=== PATIENT | female | born 1980 | race Caucasian/White ===

== ENCOUNTER 2017-09-26 19:07 | Emergency (ER) | payer OTHER ==
--- NOTE | 2017-09-26 21:15 | ER Document Report ---
ED Medical Screen (RME) - General Chief Complaint: Back Pain Stated Complaint: HEADACHE Time Seen by Provider: 09/26/17 20:35 TRAVEL OUTSIDE OF THE [place] IN LAST 30 DAYS: No - HPI Notes: 09/26/17 21:14 37-year-old female presents with gradual onset today of increasingly severe bifrontal headache, neck pain, photophobia, paresthesias and numbness in her hands and feet weakness in her lower extremities. No recent tick bites, no recent camping, no travel outside the country. No trauma, does not believe she has had a fever. - Related Data Allergies/Adverse Reactions: No Known Allergies Allergy (Unverified 09/26/17 19:11) Past Medical History - Social History Chew tobacco use (# tins/day): No Frequency of alcohol use: None Drug Abuse: None Renal/ Medical History: Denies: Hx Peritoneal Dialysis Psychiatric Medical History: Reports: Hx Attention Deficit Hyperactivity Disorder, Hx Depression Physical Exam - Vital signs Vitals: Temp Pulse Resp BP Pulse Ox 98.6 F 74 16 130/88 H 100 09/26/17 19:39 09/26/17 19:39 09/26/17 19:39 09/26/17 19:39 09/26/17 19:39 Course - Re-evaluation Re-evalutation: 09/26/17 21:14 RAPID MEDICAL EVALUATION DISCLOSURE I have seen this patient as part of a Rapid Medical Evaluation and, if applicable, placed any initially appropriate orders. The patient will be seen and fully evaluated, including a full history and physical exam, by a provider ( in Main ED or Fast Track) when a room becomes available. - Vital Signs Vital signs: Temp Pulse Resp BP Pulse Ox 98.6 F 74 16 130/88 H 100 09/26/17 19:39 09/26/17 19:39 09/26/17 19:39 09/26/17 19:39 09/26/17 19:39
[2017-09-26] MEDS ORDERED: NORMAL SALINE 1000 ML 1,000 ML IV ONE (21:45)
[2017-09-26] MEDS ORDERED: DIPHENHYDRAMINE HCL 50 MG/ML VIAL IV ONE (21:46)
[2017-09-26] MEDS ORDERED: METOCLOPRAMIDE HCL INJ/PF 10 MG/2 ML SDV IV ONE (21:46)
[2017-09-26 22:31] LABS: ABSOLUTE BASOPHILS # (AUTO) 0.1 10^3/uL (0.0-0.2); ABSOLUTE EOSINOPHILS # (AUTO) 0.1 10^3/uL (0.0-0.6); ABSOLUTE LYMPHOCYTES (AUTO) 2.1 10^3/uL (0.5-4.7); ABSOLUTE MONOCYTES (AUTO) 0.5 10^3/uL (0.1-1.4); ABSOLUTE NEUT (AUTO) 4.6 10^3/uL (1.7-8.2); APPEARANCE,URINE SLIGHTLY-CLOUDY; BASOPHILS % (AUTO) 0.9 % (0-2); BILIRUBIN,URINE NEGATIVE (NEGATIVE); COLOR,URINE YELLOW; GLUCOSE, URINE NEGATIVE (NEGATIVE); HEMATOCRIT 41.8 % (36.0-47.0); HEMOGLOBIN 14.1 g/dL (12.0-15.5); KETONES,URINE NEGATIVE (NEGATIVE); LEUKOCYTE ESTERASE,URINE NEGATIVE (NEGATIVE); LYMPHOCYTES % (AUTO) 28.5 % (13-45); MEAN CORPUSCULAR HGB CONC 33.7 g/dL (32.0-36.0); MEAN CORPUSCULAR VOLUME 89 fl (80-97); MONOCYTES % (AUTO) 6.8 % (3-13); NITRITE,URINE NEGATIVE (NEGATIVE); PLATELET COUNT 293 10^3/uL (150-450); PROTEIN,URINE NEGATIVE (NEGATIVE); RED CELL DISTRIBUTION WIDTH 14.4 % (11.5-14.0); SEGMENTED NEUTROPHILS % (AUTO) 62.8 % (42-78); TOTAL CELLS COUNTED % (AUTO) 100 %; URINE SPECIFIC GRAVITY 1.014; UROBILINOGEN,URINE NEGATIVE mg/dL (<2.0); WHITE BLOOD COUNT 7.3 10^3/uL (4.0-10.5)
[2017-09-26 22:43] LABS: ALANINE AMINOTRANSFERASE 25 U/L (9-52); ALBUMIN 4.1 g/dL (3.5-5.0); ALKALINE PHOSPHATASE 99 U/L (38-126); ANION GAP 14 (5-19); ASPARTATE AMINO TRANSFERASE 20 U/L (14-36); BILIRUBIN,DIRECT 0.2 mg/dL (0.0-0.4); BILIRUBIN,TOTAL 0.7 mg/dL (0.2-1.3); BLOOD UREA NITROGEN 10 mg/dL (7-20); CALCIUM 9.4 mg/dL (8.4-10.2); CARBON DIOXIDE 24 mmol/L (22-30); CHLORIDE 102 mmol/L (98-107); GLUCOSE 72 mg/dL (75-110); POTASSIUM 4.4 mmol/L (3.6-5.0); SODIUM 139.5 mmol/L (137-145); TOTAL PROTEIN 7.5 g/dL (6.3-8.2)
[2017-09-26] MEDS ORDERED: MORPHINE SULFATE 10 MG/ML INJ IV ONE (22:43)
--- NOTE | 2017-09-26 22:47 | ER Document Report ---
ED General <MAY TELLES - Last Filed: 09/27/17 08:52> - General TRAVEL OUTSIDE OF THE [place] IN LAST 30 DAYS: No <ESVIN PHELPS - Last Filed: 09/27/17 22:29> - General Chief Complaint: Back Pain Stated Complaint: HEADACHE Time Seen by Provider: 09/26/17 20:35 Notes: Patient is a 37-year-old female who presents with complaint of severe headache that she woke up with this morning. This headache is frontal and also she has pain going into her neck. No fevers. Some nausea but no vomiting. A large amount of photophobia. She does not have a history of migraines does not typically get headaches. Some body aches. No weakness into the extremities. She was seen in triage by the triage physician. She was some medications to help relieve the headache. She says these have taken the edge off her headache. She only takes a few psychiatric medications none of these dosages have changed recently. She denies noticing any recent tick bites. (ESVIN PHELPS) - Related Data Allergies/Adverse Reactions: No Known Allergies Allergy (Unverified 09/26/17 19:11) Past Medical History - Social History Smoking Status: Never Smoker Chew tobacco use (# tins/day): No Frequency of alcohol use: None Drug Abuse: None Family History: Reviewed & Not Pertinent Patient has suicidal ideation: No Patient has homicidal ideation: No Renal/ Medical History: Denies: Hx Peritoneal Dialysis Psychiatric Medical History: Reports: Hx Attention Deficit Hyperactivity Disorder, Hx Depression <ESVIN PHELPS - Last Filed: 09/27/17 22:29> Review of Systems <MAY TELLES - Last Filed: 09/27/17 08:52> <ESVIN PHELPS - Last Filed: 09/27/17 22:29> - Review of Systems Notes: My Normal Review Basic REVIEW OF SYSTEMS: CONSTITUTIONAL : Denies fever, chills, or sweats. Denies recent illness. EENT: Denies eye, ear, throat, or mouth pain or symptoms. Denies nasal or sinus congestion. RESPIRATORY: Denies cough, cold, or chest congestion. Denies shortness of breath, difficulty breathing, or wheezing. GASTROINTESTINAL: Denies abdominal pain. Denies nausea, vomiting, or diarrhea. MUSCULOSKELETAL: Denies neck or back pain or joint pain or swelling. SKIN: Denies rash or skin lesions. NEUROLOGICAL: Denies altered mental status or loss of consciousness. As a headache. Denies weakness or paralysis or loss of use of either side. Denies problems with gait or speech. Denies sensory or motor loss. ALL OTHER SYSTEMS REVIEWED AND NEGATIVE. (ESVIN PHELPS) Physical Exam <MAY TELLES - Last Filed: 09/27/17 08:52> <ESVIN PHELPS - Last Filed: 09/27/17 22:29> - Vital signs Vitals: Temp Pulse Resp BP Pulse Ox 98.6 F 74 16 130/88 H 100 09/26/17 19:39 09/26/17 19:39 09/26/17 19:39 09/26/17 19:39 09/26/17 19:39 - Notes Notes: General Appearance: Well nourished, alert, cooperative, no acute distress, moderate obvious discomfort. Vitals: reviewed, See vital signs table. Head: no swelling or tenderness to the head Eyes: PERRL, EOMI, Conjuctiva clear Mouth: No decreasd moisture Throat: No tonsillar inflammation, No airway obstruction, No lymphadenopathy Neck: No significant pain to palpation of the neck. Lungs: No wheezing, No rales, No rhonci, No accessory muscle use, good air exchange bilaterally. Heart: Normal rate, Regular rythm, No murmur, no rub Abdomen: Normal BS, soft, No rigidity, No abdominal tenderness, No guarding, no rebound, no abdominal masses, no organomegaly Extremities: strength 5/5 in all extremities, good pulses in all extremities, no swelling or tenderness in the extremities, no edema. Skin: warm, dry, appropriate color, no rash Neuro: speech clear, oriented x 3, normal affect, responds appropriately to questions. Patient lying in the room with her eyes closed. Even with muscle lights turned off she has difficulty opening her eyes due to severe photophobia. She does have good extraocular motion in all valdovinos. Pupils are equal and reactive to light. Cranial nerves II through XII are intact. Good strength in all 4 extremities distal sensation intact. (ESVIN PHELPS) Course - Laboratory Result Diagrams: 09/26/17 22:05 09/26/17 22:05 <MAY TELLES - Last Filed: 09/27/17 08:52> - Laboratory Result Diagrams: 09/26/17 22:05 09/26/17 22:05 <ESIVN PHELPS - Last Filed: 09/27/17 22:29> - Re-evaluation Re-evalutation: 09/27/17 08:52 MRV were negative. I did reevaluate her at 8:52 AM she is discomfort free and feeling much better. She was discharged home per Dr. Phelps's recommendations (MAY TELLES) 09/26/17 23:46 Patient continues to have headache. She has a headache a little bit improved after the morphine but still has significant headache. Due to her not routinely get headaches, her waking up with this headache, and her having pain into her neck getting a lumbar puncture is appropriate. I discussed the benefits and risks of the procedure with both her and her . She deferred for her to decide. agrees with allow me to perform lumbar puncture. 09/27/17 03:41 Patient did eat and drink. She is now resting comfortably and actually sleeping. I informed the patient's that was probably let her sleep is an hour to to make sure that her headache continues to resolve and improve. Around 6 AM will wake up and says she is feeling. If that time she is feeling improved and she will get to go home. If she still has a severe headache than will most likely consider possible MRI. 09/27/17 06:26 Patient is awake and says her headache is come back and is hurting. I therefore order an MRI in order more medicine to help with her headache. We will do an MRV to rule out venous sinus thrombosis as this is the last day interesting that I can think of to rule out. I have checked the patient out to Dr. Telles who will follow up on the MRI. 09/27/17 22:29 Patient's MRV was read as negative. She has been evaluated by Dr. Telles and was feeling improved and therefore was discharged home with prescription for Fioricet and a referral to neurology. Dictation of this chart was performed using voice recognition software; therefore, there may be some unintended grammatical errors. (ESVIN PHELPS) - Vital Signs Vital signs: Temp Pulse Resp BP Pulse Ox 98.1 F 71 18 100/55 L 94 09/27/17 09:17 09/27/17 09:17 09/27/17 06:20 09/27/17 09:17 09/27/17 09:17 - Laboratory Laboratory results interpreted by me: 09/26/17 09/26/17 09/26/17 22:05 22:05 22:05 RDW 14.4 H Glucose 72 L Urine Blood SMALL H Procedures - Lumbar Puncture Lumbar puncture Consent obtained: Yes Lumbar puncture pre-procedure: Betadine prep applied, Sterile drapes applied Patient position: Lying Needle size: 24 Lumbar puncture location: L4-L5 Anesthetic type: 1% Lidocaine mL's of anesthetic: 5 Amount/type of drainage: 6mls of clear CSF Number of attempts: 2 Complications: No <ESVIN PHELPS - Last Filed: 09/27/17 22:29> Discharge <MAY TELLES - Last Filed: 09/27/17 08:52> <ESVIN PHELPS - Last Filed: 09/27/17 22:29> - Discharge Clinical Impression: Headache Qualifiers: Headache type: unspecified Headache chronicity pattern: acute headache Intractability: not intractable Qualified Code(s): R51 - Headache Condition: Good Disposition: HOME, SELF-CARE Additional Instructions: Please take the prescribed medication. Please follow up with the neurologist, Dr. Jane, for reevaluation for your headaches. Return to the ER if you have recurrent vomiting or intractable headache not responding to the Fioricet. Do not drive after taking the Fioricet. Prescriptions: Butalb/Acetaminophen/Caffeine [Fioricet (50-325-40 mg) Tablet] 1 tab PO Q4HP PRN #20 tab PRN Reason: Forms: Return to Work Referrals: JASON JANE MD [NO LOCAL MD] - 09/28/17 (call office to make a follow up appointment.)
[2017-09-26 22:48] LABS: URINE AMPHETAMINES SCREEN UNCONFIRMED POSITIVE; URINE BARBITURATES SCREEN NEGATIVE; URINE BENZODIAZEPINES SCREEN NEGATIVE; URINE COCAINE SCREEN NEGATIVE; URINE MARIJUANA (THC) SCREEN NEGATIVE; URINE METHADONE SCREEN NEGATIVE; URINE PHENCYCLIDINE SCREEN NEGATIVE
--- NOTE | 2017-09-26 23:32 | RADIOLOGY REPORT (SQ) ---
EXAM DESCRIPTION: CT HEAD WITHOUT IV CONTRAST COMPLETED DATE/TME: 09/26/2017 22:43 CLINICAL HISTORY: 37 years Female, headache COMPARISON: None. TECHNIQUE: No contrast. Coronal and sagittal reformat. This exam was performed according to our departmental dose-optimization program, which includes automated exposure control, adjustment of the mA and/or kV according to patient size and/or use of iterative reconstruction technique. FINDINGS: No hemorrhage or infarct. No mass, mass effect, or midline shift. Brain and extra-axial structures appear intact. IMPRESSION: Normal CT of the head.
[2017-09-26] MEDS ORDERED: LIDOCAINE 1% INJ-PF (10 MG/ML) 30 ML SDV INJ ONE (23:44)
[2017-09-26] MEDS ORDERED: DEXAMETHASONE SOD PHOS INJ 10 MG/1 ML VIAL IM ONE (23:44)
[2017-09-26] MEDS ORDERED: FENTANYL CITRATE INJ/PF 100 MCG/2 ML AMPUL IV ONE (23:44)
[2017-09-27] MEDS ORDERED: KETAMINE HCL INJ 500 MG/10 ML VIAL IV ONE (00:59)
[2017-09-27] MEDS ORDERED: NORMAL SALINE 500 ML IV ONE (01:00)
[2017-09-27 01:57] LABS: APPEARANCE ALL TUBES CLEAR; COLOR ALL TUBES COLORLESS; CSF TOTAL VOLUME 3.5 CC; CSF TUBE NUMBER 1; VOLUME TUBE 1 0.5 CC
[2017-09-27 01:58] LABS: RED BLOOD CELL,CSF 73 /uL (0-10); WHITE BLOOD CELL,CSF 1 /uL (0-5)
[2017-09-27 02:02] LABS: APPEARANCE ALL TUBES CLEAR; COLOR ALL TUBES COLORLESS; CSF TOTAL VOLUME 3.5 CC; CSF TUBE NUMBER 4; VOLUME TUBE 1 0.5 CC
[2017-09-27 02:03] LABS: RED BLOOD CELL,CSF 3 /uL (0-10); WHITE BLOOD CELL,CSF 0 /uL (0-5)
[2017-09-27 02:05] LABS: GLUCOSE,CSF 47 mg/dL (40-70); PROTEIN,CSF 59 mg/dL (12-60)
[2017-09-27] MEDS ORDERED: KETOROLAC TROMETHAMINE INJ/PF 30 MG/1 ML SDV IV ONE (06:02)
[2017-09-27] MEDS ORDERED: DIPHENHYDRAMINE HCL 50 MG/ML VIAL IV ONE (06:03)
[2017-09-27] MEDS ORDERED: METOCLOPRAMIDE HCL INJ/PF 10 MG/2 ML SDV IV ONE (06:03)
--- NOTE | 2017-09-27 08:42 | RADIOLOGY REPORT (SQ) ---
EXAM DESCRIPTION: MRA HEAD WITHOUT COMPLETED DATE/TIME: 09/27/2017 7:25 am REASON FOR STUDY: MRV of head rule out sinus thrombosis COMPARISON: CT from yesterday. TECHNIQUE: Noncontrast MRV performed. Source and MPR/ MIP images reviewed. LIMITATIONS: None. FINDINGS: Venous sinuses are patent. No evidence of filling defect to suggest thrombosis. IMPRESSION: Normal cerebral MRV. TECHNICAL DOCUMENTATION: JOB ID: [id number] [employer]- All Rights Reserved Reading location - IP/workstation name: [email or web address]
[2017-09-27 09:19] VITALS: BP 100/55
[2017-09-30 12:01] LABS: ROCKY MTN SPOTTED FEV IGG EIA Negative (Negative); ROCKY MTN SPOTTED FEVER IGM AB 0.68 index (0.00-0.89)
== END 2017-09-27 09:23 | disposition home or self-care (01) ==
LOC: EDBD → ER 19:07
DX: M54.9 Dorsalgia, unspecified (principal); R51 Headache
CPT/HCPCS: 96376; 99284; 96372; 96361; 96374; 96375; 36415; 87070; 87205; 85025; 89050; 82945; 84157; 81025; 80053; 81001; 86757 ×2; 80307; 70544; 70450; 62270; J1200 ×2; J3010; J3490 ×2; J1885; J2765 ×2; J2270; J7030; J7040; J1100

== ENCOUNTER 2017-10-10 16:25 | Emergency (ER) | payer OTHER ==
[2017-10-10 16:32] VITALS: BP 128/80
[2017-10-10] MEDS ORDERED: IBUPROFEN 800 MG TABLET PO ONE (17:02)
--- NOTE | 2017-10-10 17:35 | RADIOLOGY REPORT (SQ) ---
EXAM DESCRIPTION: T SPINE AP/LAT COMPLETED DATE/TIME: 10/10/2017 5:19 pm REASON FOR STUDY: fall, back hit step COMPARISON: None. NUMBER OF VIEWS: Two views. TECHNIQUE: AP and lateral radiographic images acquired of the thoracic spine. LIMITATIONS: None. FINDINGS: MINERALIZATION: Normal. ALIGNMENT: Minimal scoliosis. VERTEBRAE: No fracture or bone lesion. Maintained height, normal segmentation. DISCS: No significant loss of height or significant narrowing. No large osteophytes. HARDWARE: None in the spine. MEDIASTINUM AND SOFT TISSUES: Normal heart size and aortic contour. No soft tissue abnormality. VISUALIZED LUNG DURAN: Clear. OTHER: No rib fractures are seen. IMPRESSION: NO SIGNIFICANT RADIOGRAPHIC FINDING IN THE THORACIC SPINE. TECHNICAL DOCUMENTATION: JOB ID: [id number] [employer]- All Rights Reserved Reading location - IP/workstation name: [email or web address]
[2017-10-10] MEDS ORDERED: LIDOCAINE 5% (700 MG) TRANSDERMAL ADH..PATCH TP ONE (17:55)
--- NOTE | 2017-10-10 17:57 | ER Document Report ---
HPI - HPI Patient complains to provider of: Back injury Onset: Yesterday Onset/Duration: Sudden Quality of pain: Achy Pain Level: 4 Context: Patient states that she slipped on wet grass hitting her back on a step. Patient denies any head injury or loss of consciousness. Patient denies any radiculopathy or paresthesia. Patient does complain of continued thoracic back pain. Associated Symptoms: Other - Upper back pain Exacerbated by: Movement Relieved by: Denies Similar symptoms previously: No Recently seen / treated by doctor: No - ROS ROS below otherwise negative: Yes Systems Reviewed and Negative: Yes All other systems reviewed and negative - NEURO Neurology: DENIES: Headache - CARDIOVASCULAR Cardiovascular: DENIES: Chest pain - GASTROINTESTINAL Gastrointestinal: DENIES: Nausea, Patient vomiting - MUSCULOSKELETAL Musculoskeletal: REPORTS: Back Pain - DERM Skin Color: Normal Skin Problems: None Past Medical History - General Information source: Patient - Social History Smoking Status: Current Every Day Smoker Chew tobacco use (# tins/day): No Smoking Education Provided: Yes Frequency of alcohol use: None Drug Abuse: None Family History: Reviewed & Not Pertinent Patient has suicidal ideation: No Patient has homicidal ideation: No Renal/ Medical History: Denies: Hx Peritoneal Dialysis Psychiatric Medical History: Reports: Hx Attention Deficit Hyperactivity Disorder, Hx Depression Past Surgical History: Reports: Hx Orthopedic Surgery - [facility] Vertical Provider Document - CONSTITUTIONAL Agree With Documented VS: Yes Exam Limitations: No Limitations General Appearance: WD/WN, No Apparent Distress - INFECTION CONTROL TRAVEL OUTSIDE OF THE [place] IN LAST 30 DAYS: No - HEENT HEENT: Atraumatic, Normal ENT Exam, Normocephalic - NECK Neck: Normal Inspection, Supple - RESPIRATORY Respiratory: Breath Sounds Normal, No Respiratory Distress - CARDIOVASCULAR Cardiovascular: Regular Rate, Regular Rhythm - BACK Back: Abnormal Inspection - Patient with thoracic midline tenderness T7 through 10 area, no step-off or deformity, no ecchymosis - MUSCULOSKELETAL/EXTREMETIES Musculoskeletal/Extremeties: MAEW, FROM, Non-Tender - NEURO Level of Consciousness: Awake, Alert, Appropriate Motor/Sensory: No Motor Deficit - DERM Integumentary: Warm, Dry, No Rash Course - Re-evaluation Re-evalutation: 10/10/17 The patient presents with back pain without signs of spinal cord compression, cauda equina syndrome, infection, aneurysm, or other serious etiology. The patient is neurologically intact. Given the extremely risk of these diagnoses further testing and evaluation for these possibilities does not appear to be indicated at this time. Patient has been instructed to return if the symptoms worsen or change in any way. - Vital Signs Vital signs: Temp Pulse Resp BP Pulse Ox 98.9 F 89 16 128/80 H 100 10/10/17 16:31 10/10/17 16:31 10/10/17 16:31 10/10/17 16:31 10/10/17 16:31 - Diagnostic Test Radiology reviewed: Image reviewed, Reports reviewed Discharge - Discharge Clinical Impression: Fall Qualifiers: Encounter type: initial encounter Qualified Code(s): W19.XXXA - Unspecified fall, initial encounter Upper back strain Qualifiers: Encounter type: initial encounter Qualified Code(s): S29.012A - Strain of muscle and tendon of back wall of thorax, initial encounter Condition: Stable Disposition: HOME, SELF-CARE Instructions: Ice Packs ([facility]), Low Back Pain ([facility]), Oral Narcotic Medication ( [facility]), Warm Packs ([facility]) Additional Instructions: Return immediately for any new or worsening symptoms Followup with your primary care provider, call tomorrow to make a followup appointment Prescriptions: Hydrocodone/Acetaminophen [[place] 5-325 Tablet] 1 each PO Q4 PRN #15 tablet PRN Reason: Forms: Smoking Cessation Education, Return to Work Referrals: [facility] [Provider Group] - Follow up as needed
== END 2017-10-10 18:06 | disposition home or self-care (01) ==
LOC: ER 16:25
DX: S29.012A Strain of muscle and tendon of back wall of thorax, initial encounter (principal); M54.6 Pain in thoracic spine; W01.198A Fall on same level from slipping, tripping and stumbling with subsequent striking against other object, initial encounter; F17.200 Nicotine dependence, unspecified, uncomplicated
CPT/HCPCS: 72070; 99283